=== PATIENT | male | born 1995 | race Caucasian/White ===

== ENCOUNTER 2018-08-01 08:35 | Emergency (ER) | payer OTHER ==
[~2018-08-01] VITALS: Ht 172.7 cm; Wt 80.3 kg
--- NOTE | 2018-08-01 08:45 | NUR ---
PT AMBULATORY TO ER BED 11 C/O ANXIETY FOR THE PAST 3 DAYS, HYPERVERBAL AND NOT MAKING SENSE, ADMITS TO MARIJUANA USE AND IS ASKING FOR XANAX. PT IS [employer]. DENIES SI/HI. AWAITING MD DIAZ.
--- NOTE | 2018-08-01 08:57 | NUR ---
DR XIONG AT BEDSIDE FOR EVAL.
[2018-08-01] MEDS ORDERED: IV NS 0.9% 1,000 ML BAG IV ONE ×2 (09:00→09:30)
[2018-08-01] MEDS ORDERED: LORAZEPAM INJ 2 MG/ML VIAL IVP ONE (09:00)
[2018-08-01] MEDS ORDERED: LORAZEPAM INJ 2 MG/ML VIAL ONE (09:03)
[2018-08-01 09:19] LABS: CALCIUM, SERUM 9.2 mg/dL (8.5-10.1); CARBON DIOXIDE 22 mmol/L (21-32); CHLORIDE 103 mmol/L (98-107); GLUCOSE 156 mg/dL (74-106); POTASSIUM 3.2 mmol/L (3.5-5.1); SODIUM SERUM 139 mmol/L (136-145); UREA NITROGEN, BLOOD 19 mg/dL (7-18)
[2018-08-01 09:20] LABS: BASOPHILS # (AUTO) 0.1 /CMM (0.0-0.2); BASOPHILS % (AUTO) 0.6 % (0.0-2.0); EOSINOPHILS % (AUTO) 1.1 % (0.0-6.0); HEMATOCRIT 45 % (39-51); HEMOGLOBIN 15.3 g/dL (13.5-17.5); LYMPHOCYTES # (AUTO) 1.8 /CMM (0.8-4.8); LYMPHOCYTES % (AUTO) 19.7 % (20.0-44.0); MEAN CORPUSCULAR HGB CONC 35 g/dl (31.0-36.0); MEAN CORPUSCULAR VOLUME 90 fL (80-96); MONOCYTES # (AUTO) 0.7 /CMM (0.1-1.30); MONOCYTES % (AUTO) 8.1 % (2.0-12.0); NEUTROPHILS # (AUTO) 6.5 /CMM (1.8-8.9); NEUTROPHILS % (AUTO) 70.5 % (43.0-81.0); PLATELET COUNT (AUTO) 319 /CMM (150-450); RED BLOOD CELL COUNT(AUTO) 4.94 MIL/uL (4.5-6.0); WHITE BLOOD COUNT (AUTO) 9.2 K/uL (4.3-11.0)
[2018-08-01 09:24] LABS: APPEARANCE,URINE Slightly Cloudy (CLEAR); BILIRUBIN,URINE Negative (NEGATIVE); BLOOD, URINE Negative Ery/uL (NEGATIVE); KETONES,URINE 15 (NEGATIVE); LEUKOCYTE ESTERASE ,URINE Negative (NEGATIVE); NITRITE, URINE Negative (NEGATIVE); PROTEIN,URINE Negative (NEGATIVE); UGLUCOSE 100 MG/DL mg/dL (NEGATIVE); UROBILINOGEN,URINE 0.2 EU/dL (0.2)
[2018-08-01 09:27] LABS: COLOR,URINE Dark Yellow (YELLOW)
[2018-08-01 09:30] LABS: BACTERIA,URINE None seen /HPF (None Seen); MUCUS,URINE Few /LPF (None Seen); RBC,URINE 0-3 /HPF (0-2); SQUAMOUS EPITHELIAL CELL,UR Few /HPF (None Seen)
[2018-08-01 09:36] LABS: ALANINE AMINOTRANSFERASE 23 U/L (12-78); ALBUMIN 4.4 g/dL (3.4-5.0); ALCOHOL, BLOOD < 3 mg/dL (0-0); ALKALINE PHOSPHATASE 76 U/L (46-116); ASPARTATE AMINOTRANSFERASE 19 U/L (15-37); BILIRUBIN,DIRECT 0.3 mg/dL (0.0-0.2); BILIRUBIN,TOTAL 1.3 mg/dL (0.2-1.0); TOTAL PROTEIN, SERUM 8.1 g/dL (6.4-8.2)
[2018-08-01 09:37] LABS: ACETAMINOPHEN 0 ug/ml (10-30); SALICYLATE < 2.8 mg/dL (2.8-20.0)
[2018-08-01 11:20] VITALS: BP 123/80
--- NOTE | 2018-08-01 11:20 | NUR ---
IV removed. Catheter intact and site benign. Pressure and 4x4 applied to site. No bleeding noted. Patient discharged to home in stable condition. Written and verbal after care instructions given. Patient verbalizes understanding of instruction.
== END 2018-08-01 11:20 | disposition home or self-care (01) ==
LOC: ER 08:37
DX: F31.9 Bipolar disorder, unspecified (principal); F60.0 Paranoid personality disorder; R00.0 Tachycardia, unspecified; R45.1 Restlessness and agitation
CPT/HCPCS: 36415; 80048; 80076; 80305; 80329; 81001; 84484; 85025; 93005; 96361; 96374; 99284; A4606; G0480 ×2; J2060; J7030 ×2; Z7610; 81000-TC